=== PATIENT | female | born 1985 | race American Indian/Alaskan Native ===

== ENCOUNTER 2021-10-01 09:06 | Emergency (ER) | payer SELFPAY ==
[2021-10-01 09:37] VITALS: BP 147/99
--- NOTE | 2021-10-01 09:49 | Emergency Department Report ---
Minor Respiratory - HPI Chief Complaint: Sore Throat Stated Complaint: EAR/THROAT PAIN/HBP DIZZY Time Seen by Provider: 10/01/21 09:40 Duration: 3 Days Pain Location: Facial, Throat, Ear Severity: mild Minor Respiratory: Yes Sore Throat, Yes Able to Tolerate Fluids, Yes Ear Pain, Yes Fever (subjective), No Rhinorrhea, No Cough, No Sick Contacts, No Hemoptysis, No Chest Pain, No Shortness of Breath Other History: Patient is a 36-year-old female and she comes to the ER today with a sore throat and earache. She denies fever or chills. She denies cough or shortness of breath. She denies chest pain. She has not seen her PCP. She has taken nothing prior to arrival in the ER. Patient adds that she is concerned that her blood pressure is elevated. Her blood pressure is normal on arrival. She has a history of hypertension. Patient also has that her [id number] while playing hit her in the neck 3 days ago and she is worried that she has injured her" breathing tube." Patient has no ecchymosis, abrasion, she is breathing without difficulty, controlling her secretions. ED Review of Systems ROS: Stated complaint: EAR/THROAT PAIN/HBP DIZZY Other details as noted in HPI Comment: All other systems reviewed and negative ED Past Medical Hx - Past Medical History Previous Medical History?: Yes Hx Hypertension: Yes - Surgical History Past Surgical History?: Yes Additional Surgical History: glenys summers section x2 - Family History Family history: no significant - Social History Smoking Status: Current Some Day Smoker Substance Use Type: None - Medications Home Medications: Home Medications Medication Instructions Recorded Confirmed Last Taken Type Amoxicillin [Trimox CAP] 500 mg PO BID #20 capsule 10/01/21 Unknown Rx Minor Respiratory Exam - Exam General: Vital signs noted. No distress. Alert and acting appropriately. HEENT: Yes Pharyngeal Erythema, Yes Moist Mucous Membranes, No Pharyngeal Exudates, No Rhinorrhea, No Conjuctival Injection, No Frontal Tenderness, No Maxillary Tenderness Ear: Right TM Erythema, Neither TM Bulge, Neither EAC Pain, Neither EAC Discharge Neck: Yes Adenopathy, Yes Supple Lungs: Yes Good Air Exchange, No Wheezes, No Ronchi, No Stridor, No Cough, No Labored Respirations, No Retractions, No Use of Accessory Muscles, No Other Abnormal Lung Sounds Heart: Yes Regular, No Murmur Abdomen: Yes Normal Bowel Sounds, No Tenderness, No Peritoneal Signs Skin: No Rash, No Edema Neurologic: Alert and oriented, no deficits. Musculoskeletal: Unremarkable. ED Course Vital Signs 10/01/21 09:34 Temperature 99.5 F Pulse Rate 94 H Respiratory 20 Rate Blood Pressure 147/99 [Right] O2 Sat by Pulse 98 Oximetry ED Medical Decision Making - Medical Decision Making Vital Signs 10/01/21 09:34 Temperature 99.5 F Pulse Rate 94 H Respiratory 20 Rate Blood Pressure 147/99 [Right] O2 Sat by Pulse 98 Oximetry Patient being treated for URI. Being discharged home with amoxicillin. Patient is ambulatory, nonill appearing, normotensive without tachycardia and no fever. She is taking p.o. and is ambulatory without shortness of breath. Patient verbalizes understanding of discharge plan of care including diet, activity, medications and follow-up. - Differential Diagnosis simple uri Critical care attestation.: If time is entered above; I have spent that time in minutes in the direct care of this critically ill patient, excluding procedure time. ED Disposition Clinical Impression: History of hypertension Otitis Qualifiers: Laterality: right Qualified Code(s): H66.91 - Otitis media, unspecified, right ear Pharyngitis Qualifiers: Pharyngitis/tonsillitis etiology: unspecified etiology Qualified Code(s): J02.9 - Acute pharyngitis, unspecified Contusion Qualifiers: Encounter type: initial encounter Contusion area: neck Qualified Code(s): S10.93XA - Contusion of unspecified part of neck, initial encounter Disposition: HOME / SELF CARE / HOMELESS Is pt being admited?: No Does the pt Need Aspirin: No Condition: Stable Instructions: Otitis Media, Adult, [id number], Pharyngitis, [id number] Additional Instructions: Medication as ordered today [id number] Motrin and Tylenol for fever or pain Stay well-hydrated with water Warm compresses to your neck may Monitor your blood pressure, keep a record and follow-up with PCP as we discussed. In the meantime stay well-hydrated with water and eat a low-fat low-salt diet Referral has been given to PCP below Prescriptions: Amoxicillin [Trimox CAP] 500 mg PO BID #20 capsule Referrals: FABIAN CORNEJO MD [Primary Care Provider] - 3-5 Days Time of Disposition: 09:47
[2021-10-01] MEDS: dexAMETHasone 4 MG/ML VIAL IM ONE (10:12)
== END 2021-10-01 10:27 | disposition home or self-care (01) ==
LOC: ED 09:06
DX: S10.93XA Contusion of unspecified part of neck, initial encounter (principal); H66.91 Otitis media, unspecified, right ear; I10 Essential (primary) hypertension; J02.9 Acute pharyngitis, unspecified; F17.200 Nicotine dependence, unspecified, uncomplicated; Z98.890 Other specified postprocedural states; X58.XXXA Exposure to other specified factors, initial encounter; Y93.89 Activity, other specified; Y92.89 Other specified places as the place of occurrence of the external cause; Y99.8 Other external cause status
CPT/HCPCS: 96372; 99282; J1100